=== PATIENT | female | born 1945 | race Caucasian/White ===

== ENCOUNTER → 2021-12-06 | Outpatient (CLI) | payer MEDICARE | LOC: RT 15:22 | DX: I48.20 Chronic atrial fibrillation, unspecified (principal); Z95.0 Presence of cardiac pacemaker | CPT/HCPCS: 93005 ==

== ENCOUNTER 2021-12-07 12:40 | Emergency (ER) | payer MEDICARE ==
[2021-12-07 14:18] LABS: HEMOGLOBIN 11.8 gm/dl (12.3-15.3); RED BLOOD COUNT 3.62 M/UL (4.00-5.10); WHITE BLOOD COUNT 5.4 K/UL (4.5-11.0)
== END 2021-12-07 18:42 | disposition home or self-care (01) ==
LOC: ER1 12:40
PROVIDERS: Family Medicine
DX: F32.A Depression, unspecified (principal); I50.9 Heart failure, unspecified; I25.2 Old myocardial infarction; I48.91 Unspecified atrial fibrillation; J44.9 Chronic obstructive pulmonary disease, unspecified; F17.200 Nicotine dependence, unspecified, uncomplicated; Z88.8 Allergy status to other drugs, medicaments and biological substances; Z95.0 Presence of cardiac pacemaker
CPT/HCPCS: 71045; 80053; 82550; 82553; 83605; 83735; 83880; 84439; 84443; 84484; 85025; 93005; 99284

== ENCOUNTER 2021-12-16 10:17 | Emergency (ER) | payer MEDICARE ==
[2021-12-16 11:43] LABS: HEMOGLOBIN 11.7 gm/dl (12.3-15.3); RED BLOOD COUNT 3.59 M/UL (4.00-5.10); WHITE BLOOD COUNT 3.6 K/UL (4.5-11.0)
[2021-12-16] MEDS ORDERED: KLOR-CON M1010 MEQ PO (16:44)
== END 2021-12-16 16:50 | disposition home or self-care (01) ==
LOC: ER1 10:17
PROVIDERS: Physician Assistant
DX: I11.0 Hypertensive heart disease with heart failure (principal); I50.9 Heart failure, unspecified; J44.9 Chronic obstructive pulmonary disease, unspecified; F17.210 Nicotine dependence, cigarettes, uncomplicated; Z95.0 Presence of cardiac pacemaker; Z88.8 Allergy status to other drugs, medicaments and biological substances
CPT/HCPCS: 71045; 80053; 82550; 82553; 83880; 84484; 85025; 85652; 86140; 93005; 99284

== ENCOUNTER 2021-12-29 15:45 | Inpatient (IN) | payer MEDICARE ==
[~2021-12-29] VITALS: Ht 172.7 cm; Wt 73.5 kg
[~2021-12-29 15:45] MED LIST: KLOR-CON M1010 MEQ PO
[2021-12-29 16:45] LABS: HEMOGLOBIN 13.2 gm/dl (12.3-15.3); RED BLOOD COUNT 4.02 M/UL (4.00-5.10); WHITE BLOOD COUNT 5.8 K/UL (4.5-11.0)
[2021-12-30 05:38] LABS: HEMOGLOBIN 11.8 gm/dl (12.3-15.3); RED BLOOD COUNT 3.62 M/UL (4.00-5.10)
[2021-12-30 06:04] LABS: WHITE BLOOD COUNT 4.2 K/UL (4.5-11.0)
[2021-12-30] MEDS ORDERED: ELIQUIS5 MG PO (11:39)
[2021-12-30] MEDS ORDERED: SYNTHROID25 MCG PO (11:42)
[2021-12-30] MEDS ORDERED: CARVEDILOL25 MG PO (11:42)
[2021-12-30] MEDS ORDERED: LASIX20 MG PO (11:42)
[2021-12-30] MEDS ORDERED: TYLENOL325 MG PO (11:43)
== END 2022-01-01 08:18 | disposition left against medical advice (07) | DRG 308 ==
LOC: ER1 15:45 → CDU 18:47 → CCU 12-30 03:48 → PROG CARE 12-30 11:22
PROVIDERS: Nurse Practitioner; ADMIT Internal Medicine
PROC: B24BZZZ Ultrasonography of Heart with Aorta (ICD-10-PCS; principal; 2021-12-30)
DX: I48.20 Chronic atrial fibrillation, unspecified (principal); U07.1 COVID-19; J44.1 Chronic obstructive pulmonary disease with (acute) exacerbation; E03.9 Hypothyroidism, unspecified; I87.8 Other specified disorders of veins; F17.210 Nicotine dependence, cigarettes, uncomplicated; I49.5 Sick sinus syndrome; L89.892 Pressure ulcer of other site, stage 2; I10 Essential (primary) hypertension; F31.9 Bipolar disorder, unspecified; Z53.21 Procedure and treatment not carried out due to patient leaving prior to being seen by health care provider; I08.1 Rheumatic disorders of both mitral and tricuspid valves; Z82.49 Family history of ischemic heart disease and other diseases of the circulatory system; Z95.0 Presence of cardiac pacemaker; Z91.14 Patient's other noncompliance with medication regimen; Z71.6 Tobacco abuse counseling; Z98.891 History of uterine scar from previous surgery
CPT/HCPCS: 0240U; 71045; 80048; 80053; 80061; 81001; 82550; 82553; 83036; 83735; 83880; 84439; 84443; 84484; 85025; 85652; 86140; 87086; 93005; 96374; 99285; G0378; J1940